=== PATIENT | female | born 1970 | race Caucasian/White ===

== ENCOUNTER 2022-08-28 23:17 | Emergency (ER) | payer OTHER, SELFPAY ==
--- NOTE | ~2022-08-28 | CT_ITS ---
EXAMINATION: CT cervical spine wo con DATE: 08/29/2022 00:14 INDICATION: Right neck pain and shoulder pain for 8 days. No known injury. TECHNIQUE: Computed tomography (CT) of the cervical spine was performed without intravenous contrast. The dose-length product was 458 mGy-cm. Automated exposure control and iterative reconstruction tech nique were employed. COMPARISON: None FINDINGS: There is emphysema in the lung apices. No significant paraspinal soft tissue abnormality. V ertebral body heights are normal. There is mild degenerative disc disease at C5-6 and C6-7. Small ivon jelena osteophyte at this level. No evidence for perched facet. Straightening of normal cervical lordosi s which may be due to patient positioning or muscle spasm. Craniovertebral junction is normal. No avelino dence for perched facet. Mild multilevel uncinate hypertrophy. IMPRESSION: 1. No acute abnormality of the cervical spine. 2: Mild cervical spondylosis. Reviewed, dictated and finalized at location B.
[2022-08-28 23:26] VITALS: BP 190/94; PULSE 87; RESP 18; TEMP 36.4; O2SAT 98
--- NOTE | 2022-08-28 23:45 | ED.NECK ---
HPI - Neck Pain/Injury General Chief Complaint: Extremity Problem,Nontraumatic Stated Complaint: Left Shoulder Pain Time Seen by Provider: 08/28/22 23:45 Source: patient and RN notes reviewed Mode of arrival: ambulatory Limitations: no limitations History of Present Illness HPI Narrative: patient states she has had neck pain for the last 8 days. She does not remember any injury. She says that she has been trying heat alternate with cold. He tried ibuprofen, Tylenol nothing seems to help. Says she noticed a lump near her left shoulder blade. It is tender with palpation but has gotten smaller since all this started. She denies any other shortness of breath. complaint: neck pain Onset (ago): day(s) (8) Radiation: left lateral Severity: severe and intermittent Quality: sharp and stabbing Duration: intermittent Relieving factors: none Exacerbating factors: movement of extremity and movement of neck Context: unknown Associated symptoms: none Treatments prior to arrival: acetaminophen, ibuprofen, cold therapy and heat therapy Related Data Allergies Allergy/AdvReac Type Severity Reaction Status Date / Time No Known Allergies Allergy Verified 08/28/22 23:24 Review of Systems Review of Systems: All systems reviewed & are unremarkable except as noted in HPI and below PMFSH Past Medical History Medical History (Updated 08/29/22 @ 01:10 by Nilesh Mendez MD) No active medical problems Surgical History Surgical History (Updated 08/28/22 @ 23:55 by Nilesh Mendez MD) History of tonsillectomy and adenoidectomy Pilonidal cyst Social History Social History (Updated 08/28/22 @ 23:54 by Nilesh Mendez MD) Smoking packs per day: 0.75 Smoking cigarettes per day: 15.0 Smoking status: Current every day smoker Alcohol intake: current Alcohol use details: beer a couple times a week Substance use: current Substance use type: marijuana Other substance usage details: couple times a week Exam Const: General: healthy appearing, no acute distress and alert Nutritional Appearance: well nourished Orientation/consciousness: patient oriented x3 Limitations: no limitations HENMT: Head: normal to inspection Eyes: Conjunctivae: conjunctivae normal Pupils: Equal, round and reactive pupils present EOM: EOMs intact bilaterally Neck: Neck: normal visual inspection and no lymphadenopathy Resp: Effort & Inspection: normal respiratory effort Auscultation: clear to auscultation bilaterally Cardio: Rate: regular rate Rhythm: regular rhythm GI: GI Palp: Yes Soft to palpation and No Tenderness to palpation present (GI) Auscultation: normal bowel sounds Back/Spine/Pelvis: Back: mass ( left trapezius just medial to the left scapula soft, tender mobile) Cervical Spine: cervical ROM normal, cervical muscular tenderness (moderate on the left) and Cervical spine tenderness (C4) Skin: General skin exam: normal color Rashes: no rashes Neuro: General: patient oriented x3, moves all extremities and no meningeal signs Speech: normal speech Gait exam (Neuro): Normal gait present Extrem: General: normal to inspection and no clubbing, cyanosis or edema Psych: Mental Status: mental status grossly normal Affect: normal affect Attitude: cooperative Course Vital Signs Vital signs: Vital Signs Temperature 36.4 C 08/28/22 23:26 Pulse Rate 87 08/28/22 23:26 Respiratory Rate 18 08/28/22 23:26 Blood Pressure 190/94 H 08/28/22 23:26 Pulse Oximetry 98 08/28/22 23:26 Oxygen Delivery Room Air 08/28/22 23:26 Temperature 37.0 C 08/29/22 01:11 Pulse Rate 77 08/29/22 01:11 Respiratory Rate 18 08/29/22 01:11 Blood Pressure 190/92 H 08/29/22 01:11 Pulse Oximetry 96 08/29/22 01:11 Oxygen Delivery Room Air 08/29/22 01:11 MDM - Neck Pain/Injury Differential Diagnosis Differential diagnosis: Likely disc disorder of cervical region, cervical radiculopathy, torticollis and strain of ne
[2022-08-29] MEDS: KETOROLAC 30 MG/ML VIAL (*BKC) IM (00:20)
[2022-08-29] MEDS: ORPHENADRINE CITRATE 30 MG/ML 2 ML VIAL 60 MG IM (00:20)
[2022-08-29 01:11] VITALS: BP 190/92; PULSE 77; RESP 18; TEMP 37; O2SAT 96
== END 2022-08-29 01:19 | disposition home or self-care (01) ==
PROVIDERS: Emergency Provider Emergency Medicine
DX: S16.1XXA Strain of muscle, fascia and tendon at neck level, initial encounter (principal)
CPT/HCPCS: 72125; 96372; 99284; J1885; J2360

== ENCOUNTER 2024-09-23 13:50 | Outpatient (CLI) | payer OTHER, SELFPAY ==
--- NOTE | ~2024-09-23 | XR_ITS ---
[id number] Ordering provider: Geovanny Montes De Oca, PASven History: . RIGHT CERVICAL RADICULOPATHY . Comparison: None. FINDINGS: VERTEBRAL BODIES: Normal height and alignment. No visible fracture or subluxation. The dens is intact . DISK SPACES: Narrowing of the disc C5-C6 and C6-C7. Multilevel uncovertebral joint osteoarthritic sayda nges. PARASPINOUS SOFT TISSUES: No prevertebral soft tissue swelling. IMPRESSION: No acute osseous abnormality cervical spine. Multilevel degenerative disc disease. Reviewed, dictated and finalized at location A.
== END 2024-09-23 13:51 | disposition home or self-care (01) ==
LOC: CHSIMG 13:54
PROVIDERS: PCP Physician Assistant; Visit Provider Physician Assistant
DX: M54.12 Radiculopathy, cervical region (principal); M50.30 Other cervical disc degeneration, unspecified cervical region
CPT/HCPCS: 72040

== ENCOUNTER 2024-09-28 14:53 | Outpatient (CLI) | payer OTHER, SELFPAY ==
--- NOTE | ~2024-09-28 | XR_ITS ---
XR shoulder RT min 2V Ordering provider: Isac Baez, PAPER LATCHER History: . right shoulder pain . Comparison: None. FINDINGS: BONES: No acute fracture or dislocation. JOINT SPACES: The acromioclavicular joint is normal. The glenohumeral joint is normal. SOFT TISSUES: Normal. IMPRESSION: No acute osseous abnormality right shoulder. Reviewed, dictated and finalized at location A. ER FLAP CUTTER
== END 2024-09-28 14:54 | disposition home or self-care (01) ==
LOC: CHSIMG 14:56
PROVIDERS: PCP Physician Assistant; Visit Provider Physician Assistant
DX: M54.12 Radiculopathy, cervical region (principal)
CPT/HCPCS: 73030

== ENCOUNTER 2025-10-09 22:51 | Emergency (ER) | payer BC, SELFPAY ==
[2025-10-09 22:51] VITALS: BP 151/81; PULSE 81; RESP 18; TEMP 36.6; O2SAT 98
--- NOTE | 2025-10-09 22:55 | ED.ANIMALBIT ---
HPI - Animal Bite General Chief Complaint: Animal Bite Stated Complaint: Animal bite Time Seen by Provider: 10/09/25 22:55 Source: patient and family Mode of arrival: ambulatory Limitations: no limitations History of Present Illness HPI narrative: Patient is a 54-year-old female with bilateral hand cat bite and scratches from this evening after trying to collect a cat that got out of the house. The animal is an inside cat. Does not get vaccines. It was a provoked event as the animal got out and she tried did handle the cat to bring it back inside. The animal will work its way back into the house tonight. Tetanus not up-to-date. She is having pain of the hands. complaint: animal bite (cat) Onset (ago): hour(s) (1) Animal: cat Description of animal: household pet, immunizations unknown (Not up-to-date) and appeared well Mechanism: bite and scratch Location - Extremities: Bilateral: arm, forearm and hand Pain description: sharp Severity scale (1-10): 5 Context: provoked Associated symptoms: erythema and bleeding Treatments prior to arrival: pressure Related Data Patient tetanus UTD: No Allergies Allergy/AdvReac Type Severity Reaction Status Date / Time No Known Allergies Allergy Verified 10/09/25 23:06 Review of Systems Review of Systems: All systems reviewed & are unremarkable except as noted in HPI and below Constitutional: Constitutional: Reports no additional constitutional complaints Eyes: Eyes: Reports no additional eye complaints ENT: Reports system reviewed and no additional complaints, except as documented Cardiovascular: Cardiovascular: Reports no additional cardiovascular complaints Respiratory: Respiratory: Reports no additional respiratory complaints Gastrointestinal: Gastrointestinal: Reports no additional gastrointestinal complaints Genitourinary: Genitourinary: Reports no additional female genitourinary complaints Musculoskeletal: Musculoskeletal: Reports no additional musculoskeletal complaints Integumentary/Breasts: Skin/Breast: Reports system reviewed and no additional complaints, except as docu Neurologic: Reports system reviewed and no additional complaints, except as documented Psychiatric: Psychiatric: Reports no additional psychiatric complaints Endocrine: Endocrine: Reports no additional endocrine complaints Hematologic/Lymphatic: Hematologic/Lymphatic: Reports no additional hematologic/lymphatic complaints Allergic/Immunologic: Allergic/Immunologic: Reports no additional allergic/immunologic complaints PMFSH Past Medical History Medical History No active medical problems Surgical History Surgical History History of tonsillectomy and adenoidectomy Pilonidal cyst Social History Social History Smoking packs per day: 0.75 Smoking cigarettes per day: 15.0 Smoking status: Current every day smoker Alcohol intake: current Alcohol use details: beer a couple times a week Substance use: current Substance use type: marijuana Other substance usage details: couple times a week Exam Const: General: healthy appearing Nutritional Appearance: well nourished Orientation/consciousness: patient oriented x3 HENMT: Head: normal to inspection Ears: external ears normal Face/Nose/Sinus: Normal external nose present Eyes: Conjunctivae: conjunctivae normal Pupils: Equal, round and reactive pupils present EOM: EOMs intact bilaterally Neck: Neck: normal visual inspection Chest: Chest palpation & inspection: normal inspection of the chest Resp: Effort & Inspection: normal respiratory effort and not labored Auscultation: clear to auscultation bilaterally and no crackles Cardio: Rate: regular rate Rhythm: regular rhythm Heart sounds: no murmurs GI: Inspection: non-distended GI Palp: Yes Soft to palpation and No Tenderness to palpation present (GI) Auscultation: normal bowel sounds : General: Yes bladder normal to palpation Back/Spine/Pelvis: Back: no CVA tenderness Skin: General skin exam: normal color Rashes: no rashes Wounds: wound noted Other: Bilateral hands have multiple areas of bite read and scratch read from the cat; areas of bruising; bleeding has stopped at this time; some further bites and scratches up the left arm and also bit her near the nipple on the left side Neuro: General: patient oriented x3, moves all extremities and no meningeal signs Extrem: General: normal to inspection, no clubbing, cyanosis or edema and no pedal edema Psych: Mental Status: mental status grossly normal Affect: normal affect Attitude: cooperative MDM - Animal Bite MDM Narrative Medical decision making narrative: Patient is a 54-year-old female with a cat bite/scratch provoked event this evening from an indoor known animal. No concerns for rabies at this time. Vaccines are not up-to-date for the animal. Tetanus is not up-to-date for the human. We will give a tetanus vaccine. Augmentin. [place]. We will notify animal control so the animal can be monitored for the next 10 days. Discharge Plan Discharge Clinical Impression: Cat bite Patient Disposition: Home Condition: Stable Instructions: Antibiotic Form, Animal Bite (ED) Patient Language: Maldivian Prescriptions: New amoxicillin-pot clavulanate 875-125 mg tablet 1 tablet PO BID 10 Days Qty: 20 0RF hydrocodone-acetaminophen 5-325 mg tablet 1 tablet PO Q8H PRN (Reason: pain) Qty: 10 0RF No Action nabumetone 750 mg tablet 750 mg PO BID 10 Days Qty: 20 0RF Follow-up/Referrals: Tavon,TONYA Small [Primary Care Provider] Stand Alone Forms: Work/School Release IP Time of Disposition: 23:16
--- OUTSIDE RECORDS SUMMARY | 2025-10-09 22:55 | XMS_ITS | Clinical Summary ---
Author Organization [facility] Address [address] [place] [address] Care Team Providers Care Combine Inspector Name Role Phone Geovanny Montes De Oca Primary Care Provider [phone] Allergies No known active allergies Medications escitalopram (LEXAPRO) 20 MG tablet Take 1 tablet (20 mg total) by mouth nightly at bedtime. Active potassium bicarbonate (EFFER-K) 25 MEQ effervescent tablet Take 1 tablet (25 mEq total) by mouth 2 (two) times daily. Active Active Problems Problem Noted Date Diagnosed Date Biliary colic 01/20/2025 Smoker 09/26/2022 Depression 09/26/2022 Blood pressure elevated without history of HTN 1 11/26/2021 Family History Medical History Relation Comments Cancer Father No Known Problems Mother Relation Status Comments Father Mother Alive Social History Tobacco Use Types Packs/Day Years Used Date Smoking Tobacco: Every Day Cigarettes Smokeless Tobacco: Never Tobacco Cessation:Ready to Q uit: Not Asked; Counseling Given: Not Answered Alcohol Use Standard Drinks/Week Comments Yes 0 (1 standard drink = 0.6 oz pur e alcohol) socially Comments No Sex and Gender Information Value Date Recorded Sex Assigned at Female 01/20/2025 9:40 AM 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 Legal Sex Female 10:58 PM 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 Gender Identity Not on file Sexual Orientation Not on file Last Filed Vital Signs Vital Sign Reading Time Taken Comments Blood Pressure 166/74 02/17/2025 8:56 AM CDT Pulse 84 02/17/2025 8:56 AM CDT Temperature 35.8 C (96.4 F) 02/04/2025 12:35 PM CDT Respiratory Rate 16 02/17/2025 8:56 AM CDT Oxygen Saturation 98% 02/17/2025 8:56 AM CDT Inhaled Oxygen Concentration - - Weight 64.1 kg (141 lb 6.4 oz) 02/17/2025 8:56 A M CDT Height 157.5 cm (5' 2) 02/17/2025 8:56 AM CDT Body Mass Index 25.86 02/17/2025 8:56 AM CDT Plan of Treatment Health Maintenance Due Date Last Done Comments Cervical Cancer Screening Pa p Smear (Age 30 to 64) Every 3 Years 1969 Colorectal Cancer Screening Colonoscopy (10 Years) 1969 Annual Physical 1972 Hepatitis C 1987 DTaP, Tdap and Td Vaccines ( 1 - Tdap) 1988 Hepatitis B Vaccines (1 of 3 - 19+ 3-dose series) 1988 Pneumococcal Vaccine: 50+ Ye ars (1 of 2 - PCV) 1988 Cervical Cancer Screening Pa p with HPV Testing (Age 30 to 64) Every 5 Years 1999 Cervical Cancer Screening with HPV 1999 Mammogram Screening 2009 Zoster Vaccines (1 of 2) 2019 PHQ-2 (Physician [place]) 11/25/2024 COVID-19 Vaccine (2024-2 6 season) 2025 Influenza Adult (#1) 2025 Hepatitis A Vaccines Aged Out No long er eligible based on patient's age to complete this topic Meningococcal B Vaccine Aged Out No l onger eligible based on patient's age to complete this topic Meningococcal Vaccine Aged Out No ambika rajinder eligible based on patient's age to complete this topic RSV Immunizations Under 20 Months Aged Out No longer eligible based on patient's age to complete this topic Insurance [facility] Care Teams Combine Inspector Relationship Specialty Start Date End Date Geovanny Montes De Oca PA [address] [place] [id number] PCP - General 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
--- NOTE | 2025-10-09 23:00 | PC.NURSE ---
ANIMAL BITE FORM GIVEN TO PATIENTS TO FILL OUT.
[2025-10-09] MEDS: HYDROcodone/acetaminophen (*CRX) 5-325 MG TABLET 1 TAB PO (23:13)
[2025-10-09] MEDS: TETANUS,DIPHTHERIA,AC PERTUSSIS ADULT 0.5 ML (ADACEL) IM (23:13)
[2025-10-09 23:36] VITALS: BP 142/78; PULSE 77; RESP 20; O2SAT 96
== END 2025-10-09 23:36 | disposition home or self-care (01) ==
PROVIDERS: Emergency Provider Emergency Medicine; PCP Physician Assistant
DX: S61.452A Open bite of left hand, initial encounter (principal); F17.210 Nicotine dependence, cigarettes, uncomplicated; W55.01XA Bitten by cat, initial encounter; Z23 Encounter for immunization
CPT/HCPCS: 90471; 90715; 99283; A9270